=== PATIENT | female | born 1975 | race Caucasian/White ===

== ENCOUNTER 2018-05-26 09:10 | Emergency (ER) | payer OTHER ==
[~2018-05-26] VITALS: Ht 157.5 cm; Wt 49.1 kg
[2018-05-26 09:14] VITALS: TEMP 37.2; Ht 157.5 cm; Wt 49.1 kg
[2018-05-26] MEDS ORDERED: SODIUM CHLORIDE 0.9% 1000ML 2,000 ML IV STA (09:43)
--- NOTE | 2018-05-26 09:54 | EMERGENCY ROOM VISIT NOTE ---
History Report prepared by Erick: Meg Frost Under the Supervision of: Dr. Herbert Rich M.D. First contact with patient: 09:30 Chief Complaint: SYNCOPE Stated Complaint: SYNCOPE Nursing Triage Summary: Pt reports having a GI bug a few weeks ago and was feeling better but symptoms returned last night. Pt traveling from [place]. Also currently going through IVF. Pt reports she passed out twice this AM. UNsure if she hit her head but reports that her head does not hurt. 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 She then had her egg retrieval and was given fluids and felt much better until last night. She had diarrhea again last night, a fever of 100 , chills, and felt very weak. She states she thinks she got her menstrual cycle this morning and then passed out after going to the bathroom. She states she felt some tingling and then passed out while standing but does not think she hit her head. She states she called her parents who tried carrying her to the bed, and she passed out again. She is accompanied by her father who states that about 1 week ago, the patient had some melena. The patient states she feels a little lightheaded and weak but denies any headaches or history of ulcers. She did not have chest pain, palpitations or feel short of breath. 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 A total of 10 systems reviewed and were otherwise negative. Past Medical & Surgical Medical Problems: (1) No significant past medical history Family History No pertinent family history Social History Smoking Status: Never Smoker Marital Status: Housing Status: lives with family Occupation Status: employed Current/Historical Medications Scheduled Levothyroxine Sodium (Synthroid), 75 MCG PO DAILY Allergies Coded Allergies: No Known Allergies (Unverified , 05/26/18) Physical Exam Vital Signs Date Time Temp Pulse Resp B/P (MAP) Pulse Ox O2 Delivery O2 Flow Rate FiO2 05/26/18 12:05 100 20 108/56 100 05/26/18 11:35 107 18 105/61 100 Room Air 05/26/18 10:26 108 17 115/74 100 Room Air 05/26/18 09:23 105 105/63 98 115/66 108 118/69 05/26/18 09:19 103 05/26/18 09:14 37.2 103 17 123/65 100 Room Air Physical Exam GENERAL: Patient is in no acute distress. HEENT: No acute trauma, normocephalic atraumatic, mucous membranes moist, no nasal congestion, no scleral icterus. NECK: No stridor, no adenopathy, no meningismus, trachea is midline. LUNGS: Clear to auscultation bilaterally, no wheeze, no rhonchi, breath sounds equal. HEART: Tachycardic with a regular rhythm, no murmurs. ABDOMEN: Soft, nontender, bowel sounds positive and hyperactive, no hernias, no peritonitis. EXTREMITIES: No cyanosis or edema, full range of motion of all the joints without pain or difficulty, no signs for acute trauma. NEUROLOGIC: Oriented x 3, no acute motor or sensory deficits, no focal weakness. SKIN: No rash, no jaundice, no diaphoresis. Medical Decision & Procedures ER Provider Diagnostic Interpretation: Radiology results as stated below per my review and radiologist interpretation: ABDOMEN 2VIEW W/PA CHEST RTN CLINICAL HISTORY: 43 years-old Female presenting with abd pain, diarrhea. TECHNIQUE: PA view of the chest and supine and upright views of the abdomen were obtained. COMPARISON: None. FINDINGS: Cardiomediastinal silhouette normal. Lungs and pleural spaces clear. Prominent nipple shadows. Nonobstructive bowel gas pattern. No gross pneumoperitoneum. Allowing for bowel gas and stool, no calcifications to suggest nephrolithiasis. Osseous structures normal. IMPRESSION: 1. No acute cardiopulmonary disease. 2. No radiographic evidence of acute intra-abdominal pathology. Electronically signed by: Silver Dickens M.D. 05/26/2018 10:37 AM (CHEST FOR PE) ANGIO WITH CLINICAL HISTORY: 43 years-old Female presenting with chest pain and syncope. TECHNIQUE: Multidetector CT angiography of the chest was performed after administration of intravenous contrast. 3-D volumetric and/or maximum intensity projection (MIP) images were subsequently reconstructed for review. IV contrast: 70 mL of Optiray 320. A dose lowering technique was used consistent with the principles of ALARA (as low as reasonably achievable). COMPARISON: Chest x-ray from earlier today. CT DOSE (mGy.cm): The estimated cumulative dose is 192.15 mGy.cm. FINDINGS: Blade Boner topogram: Unremarkable. Pulmonary vasculature: The study is adequate for assessment of the pulmonary vascular tree. No filling defect within the pulmonary arteries to suggest embolus. Main pulmonary artery is not enlarged. No flattening of the interventricular septum. No intracardiac filling defect. No reflux of contrast into the hepatic veins. Remaining chest: On soft tissue windows, normal thyroid and thoracic inlet. No axillary, supraclavicular, hilar, or mediastinal lymphadenopathy. Normal aorta. Normal heart size. No pericardial or pleural effusion. Upper abdomen normal. On lung windows, no focal infiltrate or nodule. Airways patent. No pneumothorax. On bone windows, normal osseous structures. IMPRESSION: 1. No evidence of pulmonary embolus. No acute aortic injury. No acute intrathoracic pathology. Electronically signed by: Silver Dickens M.D. 05/26/2018 11:37 AM Laboratory Results 05/26/18 09:25 Red Blood Count 4.05, Mean Corpuscular Volume 85.9, Mean Corpuscular Hemoglobin 28.1, Mean Corpuscular Hemoglobin Concent 32.8, Mean Platelet Volume 10.5, Neutrophils (%) (Auto) 91.6, Lymphocytes (%) (Auto) 3.2, Monocytes (%) (Auto) 4.6, Eosinophils (%) (Auto) 0.2, Basophils (%) (Auto) 0.1, Neutrophils # (Auto) 18.17, Lymphocytes # (Auto) 0.63, Monocytes # (Auto) 0.92, Eosinophils # (Auto) 0.03, Basophils # (Auto) 0.02 05/26/18 09:25 Test 05/26/18 09:25 05/26/18 10:25 White Blood Count 19.83 K/uL (4.8-10.8) Red Blood Count 4.05 M/uL (4.2-5.4) Hemoglobin 11.4 g/dL (12.0-16.0) Hematocrit 34.8 % (37-47) Mean Corpuscular Volume 85.9 fL (80-100) Mean Corpuscular Hemoglobin 28.1 pg (25-34) Mean Corpuscular Hemoglobin Concent 32.8 g/dl (32-36) Platelet Count 314 K/uL (130-400) Mean Platelet Volume 10.5 fL (7.4-10.4) Neutrophils (%) (Auto) 91.6 % Lymphocytes (%) (Auto) 3.2 % Monocytes (%) (Auto) 4.6 % Eosinophils (%) (Auto) 0.2 % Basophils (%) (Auto) 0.1 % Neutrophils # (Auto) 18.17 K/uL (1.4-6.5) Lymphocytes # (Auto) 0.63 K/uL (1.2-3.4) Monocytes # (Auto) 0.92 K/uL (0.11-0.59) Eosinophils # (Auto) 0.03 K/uL (0-0.5) Basophils # (Auto) 0.02 K/uL (0-0.2) RDW Standard Deviation 43.6 fL (36.4-46.3) RDW Coefficient of Variation 14.0 % (11.5-14.5) Immature Granulocyte % (Auto) 0.3 % Immature Granulocyte # (Auto) 0.06 K/uL (0.00-0.02) Prothrombin Time 11.0 SECONDS (9.0-12.0) Prothromb Time International Ratio 1.0 (0.9-1.1) Activated Partial Thromboplast Time 25.7 SECONDS (21.0-31.0) Partial Thromboplastin Ratio 1.0 Anion Gap 10.0 mmol/L (3-11) Est Creatinine Clear Calc Drug Dose 70.8 ml/min Estimated GFR () 104.6 Estimated GFR (Non- 90.2 BUN/Creatinine Ratio 10.9 (10-20) Calcium Level 8.4 mg/dl (8.5-10.1) Magnesium Level 1.8 mg/dl (1.8-2.4) Total Bilirubin 0.9 mg/dl (0.2-1) Aspartate Amino Transf (AST/SGOT) 11 U/L (15-37) Alanine Aminotransferase (ALT/SGPT) 19 U/L (12-78) Alkaline Phosphatase 59 U/L (45-117) Troponin I < 0.015 ng/ml (0-0.045) Total Protein 7.2 gm/dl (6.4-8.2) Albumin 3.5 gm/dl (3.4-5.0) Globulin 3.7 gm/dl (2.5-4.0) Albumin/Globulin Ratio 0.9 (0.9-2) Thyroid Stimulating Hormone (TSH) 1.080 uIu/ml (0.300-4.500) Free Thyroxine 1.37 ng/dl (0.80-1.60) Human Chorionic Gonadotropin, Qual NEG (NEG) Urine Color YELLOW Urine Appearance CLEAR (CLEAR) Urine pH 5.0 (4.5-7.5) Urine Specific [place] 1.010 (1.000-1.030) Urine Protein NEG (NEG) Urine Glucose (UA) NEG (NEG) Urine Ketones 1+ (NEG) Urine Occult Blood TRACE (NEG) Urine Nitrite NEG (NEG) Urine Bilirubin NEG (NEG) Urine Urobilinogen NEG (NEG) Urine Leukocyte Esterase NEG (NEG) Urine WBC (Auto) 1-5 /hpf (0-5) Urine RBC (Auto) 0-4 /hpf (0-4) Urine Hyaline Casts (Auto) 1-5 /lpf (0-5) Urine Epithelial Cells (Auto) 20-30 /lpf (0-5) Urine Bacteria (Auto) NEG (NEG) Laboratory results reviewed by me. Medications Administered Medications (Trade) Dose Ordered Sig/Antionette Route Start Time Stop Time Status Last Admin Dose Admin Sodium Chloride 2,000 ml @ 999 mls/hr Q2H1M STAT IV 05/26/18 09:43 05/26/18 11:43 DC 05/26/18 09:48 999 MLS/HR Ondansetron HCl (Zofran Inj) 4 mg NOW STAT IV 05/26/18 10:45 05/26/18 10:46 DC 05/26/18 10:56 4 MG Acetaminophen (Tylenol Tab) 1,000 mg NOW STAT PO 05/26/18 10:50 05/26/18 10:51 DC 05/26/18 10:55 1,000 MG ECG Per My Interpretation Indication: syncope Rate (beats per minute): 105 Rhythm: sinus tachycardia Findings: RBBB (incomplete), other (nonspecific ST change in the inferior and lateral leads) ED Course 09: Orthostatic vital signs were negative. 30: The patient was evaluated in room A12. A complete history and physical exam was performed. 0943: Ordered Sodium Chloride 2000 ml @ 99 mls/hr IV 1045: Orderer Zofran Inj 4 mg IV 1046: I reevaluated the patient at this time. She is still feeling very weak. 1050: Ordered Tylenol Tab 1000 mg PO 1150: I reevaluated the patient at this time. I recommended she stay in the hospital for further evaluation. She feels better but declined a hospital stay. Discussed results and discharge instructions: She verbalized understanding and agreement. The patient is ready for discharge. Medical Decision Differential diagnosis: Etiologies such as dehydration, GI bleeding, anemia, electrolyte imbalance, , PE, dysrhythmia, foodborne or viral illness, as well as others were entertained. There is a leukocytosis at 19,000, this could be consistent with infection or the stress of her syncopal event. No concerning anemia. No significant electrolyte abnormality, kidney failure or hepatitis. The patient appears to be in a euthyroid state. testing is negative. Urinalysis does not show evidence for infection. Orthostatic vital signs were negative. Obstruction series shows no free air, bowel obstruction or pneumonia. Chest CT does not show evidence for PE. EKG shows a mild sinus tachycardia with some subtle nonspecific ST changes. Cardiac enzyme testing 1 is not consistent with acute cardiac injury. The patient received IV Zofran, oral Tylenol and IV saline. She is more comfortable. She has been up to the bathroom a few times and feels back to baseline. I talked to the patient about a hospital stay because of the tachycardia, the higher white count and the fact that she is from out of town. She did not want to stay. She feels comfortable going home with her father. She has agreed to return for any worsening symptoms. She will follow with her doctors office when she returns back to [place]. The cause for this entire presentation is unclear. I do think the syncope though was from the diarrhea, her sweating and the fact that she had just stood , there was a component of dehydration here as well. Medication Reconcilliation Current Medication List: was personally reviewed by me Blood Pressure Screening Patient's blood pressure: Normal blood pressure Blood pressure disposition: Did not require urgent referral Impression Primary Impression: Syncope Additional Impressions: Diarrhea Leukocytosis Dehydration Scribe Attestation The scribe's documentation has been prepared under my direction and personally reviewed by me in its entirety. I confirm that the note above accurately reflects all work, treatment, procedures, and medical decision making performed by me. Departure Information Dispostion Home / Self-Care Forms HOME CARE DOCUMENTATION FORM, IMPORTANT VISIT INFORMATION Patient Instructions My [facility] Additional Instructions tylenol for pain bland diet--crackers, soup, toast, gatorade, rice rest return for worsening symptoms or if not improving as we discussed Problem Qualifiers
[2018-05-26 09:57] LABS: HEMATOCRIT 34.8 % (37-47); HEMOGLOBIN 11.4 g/dL (12.0-16.0); MEAN CELL VOLUME 85.9 fL (80-100); MEAN CORPUSCULAR HEMOGLOBIN 28.1 pg (25-34); MEAN CORPUSCULAR HGB CONC 32.8 g/dl (32-36); MEAN PLATELET VOLUME 10.5 fL (7.4-10.4); PLATELET COUNT 314 K/uL (130-400); RED CELL DISTRIBUTION WIDTH SD 43.6 fL (36.4-46.3); WHITE BLOOD COUNT 19.83 K/uL (4.8-10.8)
[2018-05-26 10:02] LABS: PTT PATIENT 25.7 SECONDS (21.0-31.0)
[2018-05-26 10:18] LABS: ALBUMIN 3.5 gm/dl (3.4-5.0); ALKALINE PHOSPHATASE 59 U/L (45-117); ALT/SGPT 19 U/L (12-78); AST/SGOT 11 U/L (15-37); BASO % 0.1 %; BASO ABS # 0.02 K/uL (0-0.2); BLOOD UREA NITROGEN 9 mg/dl (7-18); CALCIUM 8.4 mg/dl (8.5-10.1); CARBON DIOXIDE 21 mmol/L (21-32); CREATININE 0.81 mg/dl (0.60-1.20); EOS % 0.2 %; EOS ABS # 0.03 K/uL (0-0.5); GLUCOSE 112 mg/dl (70-99); IG# 0.06 K/uL (0.00-0.02); LYMPH % 3.2 %; LYMPH ABS # 0.63 K/uL (1.2-3.4); MONO % 4.6 %; MONO ABS # 0.92 K/uL (0.11-0.59); NEUT % 91.6 %; NEUT ABS # 18.17 K/uL (1.4-6.5); POTASSIUM 3.2 mmol/L (3.5-5.1); SODIUM 137 mmol/L (136-145); TOTAL PROTEIN 7.2 gm/dl (6.4-8.2)
--- NOTE | 2018-05-26 10:39 | DIAGNOSTIC IMAGING REPORT ---
ABDOMEN 2VIEW W/PA CHEST RTN CLINICAL HISTORY: 43 years-old Female presenting with abd pain, diarrhea. TECHNIQUE: PA view of the chest and supine and upright views of the abdomen were obtained. COMPARISON: None. FINDINGS: Cardiomediastinal silhouette normal. Lungs and pleural spaces clear. Prominent nipple shadows. Nonobstructive bowel gas pattern. No gross pneumoperitoneum. Allowing for bowel gas and stool, no calcifications to suggest nephrolithiasis. Osseous structures normal. IMPRESSION: 1. No acute cardiopulmonary disease. 2. No radiographic evidence of acute intra-abdominal pathology. Electronically signed by: Silver Dickens M.D. 05/26/2018 10:37 AM Dictated Date/Time: 05/26/2018 10:36 AM
[2018-05-26] MEDS ORDERED: ONDANSETRON INJ 2 MG/ML 2 ML VIAL IV STA (10:45)
[2018-05-26] MEDS ORDERED: ACETAMINOPHEN 500 MG TAB PO STA (10:50)
[2018-05-26] MEDS ORDERED: OPTIRAY 320 IV PRN (11:00)
[2018-05-26] MEDS ORDERED: LEVO75TA PO (11:04)
--- NOTE | 2018-05-26 11:38 | DIAGNOSTIC IMAGING REPORT ---
(CHEST FOR PE) ANGIO WITH CLINICAL HISTORY: 43 years-old Female presenting with chest pain and syncope. TECHNIQUE: Multidetector CT angiography of the chest was performed after administration of intravenous contrast. 3-D volumetric and/or maximum intensity projection (MIP) images were subsequently reconstructed for review. IV contrast: 70 mL of Optiray 320. A dose lowering technique was used consistent with the principles of ALARA (as low as reasonably achievable). COMPARISON: Chest x-ray from earlier today. CT DOSE (mGy.cm): The estimated cumulative dose is 192.15 mGy.cm. FINDINGS: Unit Leader topogram: Unremarkable. Pulmonary vasculature: The study is adequate for assessment of the pulmonary vascular tree. No filling defect within the pulmonary arteries to suggest embolus. Main pulmonary artery is not enlarged. No flattening of the interventricular septum. No intracardiac filling defect. No reflux of contrast into the hepatic veins. Remaining chest: On soft tissue windows, normal thyroid and thoracic inlet. No axillary, supraclavicular, hilar, or mediastinal lymphadenopathy. Normal aorta. Normal heart size. No pericardial or pleural effusion. Upper abdomen normal. On lung windows, no focal infiltrate or nodule. Airways patent. No pneumothorax. On bone windows, normal osseous structures. IMPRESSION: 1. No evidence of pulmonary embolus. No acute aortic injury. No acute intrathoracic pathology. Electronically signed by: Silver Dickens M.D. 05/26/2018 11:37 AM Dictated Date/Time: 05/26/2018 11:31 AM
[2018-05-26 12:05] VITALS: BP 108/56; PULSE 100; O2SAT 100
== END 2018-05-26 12:05 | disposition home or self-care (01) ==
LOC: C.EDA 09:16
DX: R55 Syncope and collapse (principal); R19.7 Diarrhea, unspecified; D72.829 Elevated white blood cell count, unspecified; E86.0 Dehydration